=== PATIENT | female | born 1985 | race Caucasian/White ===

== ENCOUNTER 2017-02-06 18:17 | Emergency (ER) | payer SELFPAY ==
[~2017-02-06] VITALS: Ht 167.6 cm; Wt 79.0 kg
[2017-02-06 18:32] VITALS: Ht 167.6 cm; Wt 79.0 kg
[2017-02-06] MEDS ORDERED: KETOROLAC 30 MG INJ IM STA (19:01)
[2017-02-06] MEDS ORDERED: TRAM50TA2 PO (19:08)
[2017-02-06] MEDS ORDERED: IBUP-1542 PO (19:08)
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
--- NOTE | 2017-02-06 21:40 | RADRPT ---
PROCEDURE: XR Cervical Spine. CLINICAL INDICATION: Neck pain TECHNIQUE: Three views of the cervical spine were performed. The images were reviewed on a PACS wo [employer]. COMPARISON: None. FINDINGS: There is reversal of the normal cervical lordosis. Minimal anterolisthesis of C3 on C4 and C4 on C5 is present. No acute fracture or dislocation is identified. No radiopaque foreign body is seen. The dens process is intact. The posterior elements are unremarkable. The prevertebral soft tissue stripe is normal. IMPRESSION: 1. Reversal of the normal cervical lordosis. 2. Minimal anterolisthesis of C3 on C4 and C4 on C5. 3. No definite acute fracture or dislocation is identified. RPTAT: HMJB .Shaquille Cadena MD, Date Time Electronically viewed and signed by .Shaquille Cadena MD, MD on 02/06/2017 21:40 .B/
== END 2017-02-06 22:02 | disposition home or self-care (01) ==
LOC: FTE 18:17
DX: S46.912A Strain of unspecified muscle, fascia and tendon at shoulder and upper arm level, left arm, initial encounter (principal); S16.1XXA Strain of muscle, fascia and tendon at neck level, initial encounter; V43.52XA Car driver injured in collision with other type car in traffic accident, initial encounter
CPT/HCPCS: 71010; 72040; 73030; J1885; 96372